=== PATIENT | male | born 1990 | race Caucasian/White ===

== ENCOUNTER 2023-04-11 21:18 | Emergency (ER) | payer OTHER ==
[~2023-04-11] VITALS: Ht 177.8 cm; Wt 77.1 kg
[2023-04-11] MEDS ORDERED: Meclizine25 MG PO (21:37)
[2023-04-11] MEDS ORDERED: HYDROCHLOROTHIA25 M1 PO (21:37)
[2023-04-11] MEDS ORDERED: PROPRANOLOL HCL60 MG PO (21:38)
[2023-04-11] MEDS ORDERED: ZITHROMAX250 MG PO ×4 (23:10→23:21)
[2023-04-11] MEDS ORDERED: PREDNISONE20 M1 PO ×4 (23:10→23:21)
== END 2023-04-11 23:28 | disposition home or self-care (01) ==
LOC: ED 21:18 → EDSEX 21:25 → ED 23:28
DX: J40 Bronchitis, not specified as acute or chronic (principal); R11.0 Nausea; I10 Essential (primary) hypertension; Z91.013 Allergy to seafood; Z20.822 Contact with and (suspected) exposure to COVID-19